=== PATIENT | male | born 1955 | race Asian ===

== ENCOUNTER → 2016-09-06 | Outpatient (CLI) | payer OTHER ==
[2014-03-08 18:44] VITALS: BP 172/102
[2016-09-06 10:43] LABS: ALBUMIN 3.6 g/dL (3.4-5.0); CALCIUM 8.8 mg/dL (8.5-10.1); CREATININE 1.3 mg/dL (0.7-1.3); GFR 56.3; PHOSPHORUS 3.7 mg/dL (2.6-4.7); POTASSIUM 3.5 mmol/L (3.5-5.1)
== END | disposition home or self-care (01) ==
LOC: LAB 09:47
PROVIDERS: ATTEND Nurse Practitioner Adult Health
DX: I10 Essential (primary) hypertension (principal); E78.5 Hyperlipidemia, unspecified
CPT/HCPCS: 36415; 80061; 80069

== ENCOUNTER 2017-03-16 08:36 | Emergency (ER) | payer OTHER ==
--- NOTE | 2017-03-16 09:17 | RAD ---
Three views FOOT LEFT 3V Clinical History: injury, pain Comparison: None. Findings: The visualized osseous structures appear normal. Impression: No acute findings.
--- NOTE | 2017-03-16 09:18 | RAD ---
Three views ANKLE LEFT 3V Clinical History: injury Comparison: None. Findings: The visualized osseous structures appear normal. Impression: No acute findings.
[2017-03-16] MEDS ORDERED: NAPR-683 PO (09:29)
[2017-03-16] MEDS ORDERED: HYDR-971 PO (09:29)
--- NOTE | 2017-03-16 09:30 | PHYS DOC ---
Past History Past Medical History: High Cholesterol, Hypertension, Other Past Surgical History: No Surgical History, Other Smoking: Non-smoker Alcohol Use: None Drug Use: None Adult General Chief Complaint Chief Complaint: ANKLE PROBLEM HPI HPI 62-year-old male patient states he twisted his left ankle last night and this morning was not able to walk and bear weight without pain. Patient complaining of pain in medial malleolus of his ankle and states his pain is 9/10 with walking but denies any pain without bearing weight. Patient denies other injuries and focal neurodeficit. Review of Systems Review of Systems Constitutional: Denies fever or chills [] Eyes: Denies change in visual acuity, redness, or eye pain [] HENT: Denies nasal congestion or sore throat [] Respiratory: Denies cough or shortness of breath [] Cardiovascular: No additional information not addressed in HPI [] GI: Denies abdominal pain, nausea, vomiting, bloody stools or diarrhea [] : Denies dysuria or hematuria [] Musculoskeletal: Denies back pain , reports joint pain [] Integument: Denies rash or skin lesions [] Neurologic: Denies headache, focal weakness or sensory changes [] Endocrine: Denies polyuria or polydipsia [] All other systems were reviewed and found to be within normal limits, except as documented in this note. Allergies Allergies Allergies Coded Allergies Type Severity Reaction Last Updated Verified No Known Drug Allergies 03/08/14 No Physical Exam Physical Exam Constitutional: Well developed, well nourished, mild distress, non-toxic appearance. [] HENT: Normocephalic, atraumatic, bilateral external ears normal, oropharynx moist, no oral exudates, nose normal. [] Eyes: PERRLA, EOMI, conjunctiva normal, no discharge. [] Neck: Normal range of motion, no tenderness, supple, no stridor. [] Cardiovascular:Heart rate regular rhythm, no murmur [] Lungs & Thorax: Bilateral breath sounds clear to auscultation [] Skin: Warm, dry, no erythema, no rash. [] Back: No tenderness, no CVA tenderness. [] Extremities: Left ankle with tenderness and mild edema in medial malleolus without neurovascular deficit Neurologic: Alert and oriented X 3, normal motor function, normal sensory function, no focal deficits noted. [] Psychologic: Affect normal, judgement normal, mood normal. [] Current Patient Data Vital Signs Vital Signs Date Time Temp Pulse Resp B/P (MAP) Pulse Ox O2 Delivery O2 Flow Rate FiO2 03/16/17 08:36 98.0 104 18 97 Room Air EKG EKG [] Radiology/Procedures Radiology/Procedures [] Course & Med Decision Making Course & Med Decision Making Pertinent Imaging studies reviewed. (See chart for details) Evaluation of patient in ER showed 62-year-old female patient with injury to left ankle without fracture. Plan to apply Aircast and provided crutches and discharge patient home with prescription of ibuprofen and hydrocodone. [] Dragon Disclaimer Dragon Disclaimer This electronic medical record was generated, in whole or in part, using a voice recognition dictation system. Departure Departure: Impression: Primary Impression: Left ankle sprain Disposition: HOME, SELF-CARE (At 0927) Condition: STABLE Referrals: FATOU COTTON MD (PCP) Patient Instructions: Ankle Sprain Additional Instructions: Apply ice on her ankle, elevate your left leg, use crutches as needed Follow-up with your primary care physician in 3-5 days Scripts Naproxen (NAPROSYN) 500 Mg Tablet 1 TAB PO BID, #20 TAB Prov: ALFONSO BRAGG MD 03/16/17 Hydrocodone Bit/Acetaminophen (NORCO 5-325 TABLET) 1 Each Tablet 1-2 TAB PO Q4-6HRS, #12 TAB Prov: ALFONSO BRAGG MD 03/16/17 ALFONSO BRAGG MD Mar 16, 2017 09:30
[2017-03-16 09:51] VITALS: BP 134/78
== END 2017-03-16 09:51 | disposition home or self-care (01) ==
LOC: ER 08:36
DX: S93.402A Sprain of unspecified ligament of left ankle, initial encounter (principal); E78.00 Pure hypercholesterolemia, unspecified; I10 Essential (primary) hypertension; X50.1XXA Overexertion from prolonged static or awkward postures, initial encounter; Y93.89 Activity, other specified; Y99.8 Other external cause status; Y92.89 Other specified places as the place of occurrence of the external cause
CPT/HCPCS: 29515; 73610; 73630; 99284-25

== ENCOUNTER → 2017-07-29 | Outpatient (CLI) | payer OTHER ==
[~2017-07-29] MED LIST: HYDR-971 PO; NAPR-683 PO
[2017-07-29 08:46] LABS: BASO % 1 % (0-3); EOS # 0.4 x10^3/uL (0.0-0.7); EOS % 5 % (0-3); HEMATOCRIT 39.9 % (39.0-53.0); HEMOGLOBIN 13.4 g/dL (13.0-17.5); LYMPH # 2.2 x10^3/uL (1.0-4.8); LYMPH % 30 % (24-48); MEAN CORPUSCULAR HEMOGLOBIN 29 pg (25-35); MEAN CORPUSCULAR HGB CONC 34 g/dL (31-37); MEAN CORPUSCULAR VOLUME 87 fL (79-100); MONO # 0.6 x10^3/uL (0.0-1.1); MONO % 9 % (0-9); NEUT # 4.2 x10^3uL (1.8-7.7); NEUT % 56 % (31-73); PLATELET COUNT 298 x10^3/uL (140-400); RED BLOOD COUNT 4.61 x10^6/uL (4.30-5.70); RED CELL DISTRIBUTION WIDTH 13.9 % (11.5-14.5); WHITE BLOOD COUNT 7.5 x10^3/uL (4.0-11.0)
[2017-07-29 09:09] LABS: ALBUMIN 3.7 g/dL (3.4-5.0); ALBUMIN/GLOBULIN RATIO 0.9 (1.0-1.7); BACTERIA,URINE 0 /HPF (0-FEW); BILIRUBIN,URINE NEG (NEG); CALCIUM 9.2 mg/dL (8.5-10.1); CLARITY,URINE CLEAR; COLOR,URINE YELLOW; CREATININE 1.4 mg/dL (0.7-1.3); GFR 51.5; GLUCOSE,URINE NEG (NEG); NITRITE,URINE NEG (NEG); POTASSIUM 3.6 mmol/L (3.5-5.1); RBC,URINE OCC /HPF (0-2); SQUAMOUS EPITHELIAL CELL,UR OCC /LPF; TOTAL BILIRUBIN 1.1 mg/dL (0.2-1.0); TOTAL PROTEIN 7.9 g/dL (6.4-8.2); URIC ACID 9.6 mg/dL (3.5-7.2); UROBILINOGEN,URINE 0.2 mg/dL (0.2 mg/dL); WBC,URINE 0 /HPF (0-4)
--- NOTE | 2017-07-29 12:15 | RAD ---
Right foot, 3 views, 07/29/2017: HISTORY: Foot pain, gout No fracture or dislocation is identified. There is only minimal narrowing of scattered interphalangeal joints and the first MTP joint. No bony erosions are seen. There is mild subcutaneous edema. No unusual soft tissue radiopacities are evident. IMPRESSION: No acute bony abnormality is detected. Electronically signed by: Terry Gifford MD (07/29/2017 12:11 PM) [facility]
[2017-07-29 14:31] LABS: THYROID STIM HORMONE (TSH) 2.279 uIU/mL (0.358-3.740)
[2017-08-01 11:10] LABS: FREE PSA/PSA RATIO 8.3 % (.); PSA FREE 0.05 ng/mL; PSA TOTAL 0.6 ng/mL (0.0-4.0)
== END | disposition home or self-care (01) ==
LOC: RAD 07:04
PROVIDERS: ATTEND Nurse Practitioner Adult Health
DX: Z00.01 Encounter for general adult medical examination with abnormal findings (principal); N40.0 Benign prostatic hyperplasia without lower urinary tract symptoms; E72.4 Disorders of ornithine metabolism; M79.671 Pain in right foot; R22.41 Localized swelling, mass and lump, right lower limb
CPT/HCPCS: 36415; 73630; 80053; 80061; 81001; 83880; 84153; 84154; 84443; 84550; 85025

== ENCOUNTER 2017-08-31 16:04 | Emergency (ER) | payer OTHER ==
[~2017-08-31] VITALS: Ht 170.2 cm; Wt 78.0 kg
[2017-08-31 16:17] VITALS: BP 141/80
--- NOTE | 2017-08-31 16:21 | PHYS DOC ---
Past History Past Medical History: High Cholesterol, Hypertension, Other Past Surgical History: No Surgical History, Other Smoking: Non-smoker Alcohol Use: None Drug Use: None Adult General Chief Complaint Chief Complaint: ANKLE PROBLEM HPI HPI Patient is a 62-year-old male who presents to the emergency department for evaluation. He states that 2 days ago he fell down several stairs in his home, and injured his left ankle and right hand. He has pain at the base of the second metacarpal on his right hand, and also pain at the medial malleolus of his left ankle. He is able to ambulate. The pain does radiate up his left lower leg, but he does not have any tenderness to that area. He denies any numbness weakness, or any other injuries. Denies any headache, neck pain or injury, back pain, chest, or any other extremity injury. Palpation of the affected areas worsen since symptoms. There are no alleviating factors to his symptoms. Review of Systems Review of Systems Constitutional: Denies fever or chills [] Eyes: Denies change in visual acuity, redness, or eye pain [] Respiratory: Denies cough or shortness of breath [] Cardiovascular: Denies chest pain [] GI: Denies abdominal pain, nausea, vomiting, bloody stools or diarrhea [] : Denies dysuria or hematuria [] Musculoskeletal: Denies neck, back pain or joint pain, except as noted in history of present illness [] Neurologic: Denies headache, focal weakness or sensory changes [] Allergies Allergies Allergies Coded Allergies Type Severity Reaction Last Updated Verified No Known Drug Allergies 03/08/14 No Physical Exam Physical Exam PHYSICAL EXAM: CONSTITUTIONAL: Well developed, well nourished HEAD: normocephalic, atraumatic EENT: PERRL, EOMI. Conjunctivae normal color, sclerae non-icteric; moist mucous membranes. NECK: Supple, non-tender; no meningismus.There is full, painless range of motion of the cervical spine, without any focal bony midline tenderness to palpation. LUNGS: Lungs CTA, breathing even and unlabored. Normal air movement. HEART: Regular rate and rhythm, no murmur CHEST: No deformity; non-tender ABDOMEN: The abdomen is soft, and non-tender, no masses or bruits. EXTREM: Normal ROM; no deformity, no calf tenderness. Normal pulses palpable in all extremities. There is no pedal edema. There is mild tenderness to palpation in the left ankle, medial malleolus without significant soft tissue swelling. There is no ligamentous laxity. Dorsalis pedis pulses are strong bilaterally. There is mild tenderness to palpation at the base of the second metacarpal bone on the right hand, without any soft tissue swelling. There is no deformity. Distal PMS are intact. The remainder of the extremities are atraumatic. SKIN: No rash; no diaphoresis NEURO: Alert; normal speech and cognition; CN's grossly intact; strength grossly intact without focal deficit. BACK: No CVA TTP. EKG EKG [] Radiology/Procedures Radiology/Procedures [PROCEDURE: ANKLE LEFT 3V Right hand and left ankle radiograph 08/31/2017 INDICATION: Fall today with right hand pain and left ankle pain. COMPARISON: March 16, 2017 left ankle TECHNIQUE: 3 views the right hand and 3 views the left ankle are provided. FINDINGS: Right hand: There is no acute fracture or dislocation. Bone mineralization is within normal limits. Mild interphalangeal joint space narrowing. Regional soft tissues are within normal limits. There is no soft tissue gas or osseous erosion. Left ankle: There is no acute fracture or dislocation. Tibial plafond and talar dome are intact. Ankle mortise is congruent. No significant soft tissue swelling. There may be an anterior tibiotalar joint effusion. IMPRESSION: No acute fracture or dislocation involving the right hand and left ankle. There may be a small anterior tibiotalar joint effusion.] Course & Med Decision Making Course & Med Decision Making Pertinent Labs and Imaging studies reviewed. (See chart for details) [] Dragon Disclaimer Dragon Disclaimer This electronic medical record was generated, in whole or in part, using a voice recognition dictation system. Departure Departure: Impression: Primary Impression: Ankle sprain Additional Impressions: Hand contusion Fall Disposition: 01 HOME, SELF-CARE Condition: STABLE Referrals: FATOU COTTON MD (PCP) Patient Instructions: Ankle Sprain, Hand Contusion Additional Instructions: Follow-up with an orthopedic surgeon or returned item clerk is recommended if you continue to have pain. Scripts Acetaminophen With Codeine (TYLENOL WITH CODEINE #3 TABLET) 1 Each Tablet 1 TAB PO Q4-6HRS PRN for PAIN, #15 TAB Prov: ERICKSON CARRENO MD 08/31/17 Problem Qualifiers ERICKSON CARRENO MD Aug 31, 2017 16:21
--- NOTE | 2017-08-31 16:35 | RAD ---
Right hand and left ankle radiograph 08/31/2017 INDICATION: Fall today with right hand pain and left ankle pain. COMPARISON: March 16, 2017 left ankle TECHNIQUE: 3 views the right hand and 3 views the left ankle are provided. FINDINGS: Right hand: There is no acute fracture or dislocation. Bone mineralization is within normal limits. Mild interphalangeal joint space narrowing. Regional soft tissues are within normal limits. There is no soft tissue gas or osseous erosion. Left ankle: There is no acute fracture or dislocation. Tibial plafond and talar dome are intact. Ankle mortise is congruent. No significant soft tissue swelling. There may be an anterior tibiotalar joint effusion. IMPRESSION: No acute fracture or dislocation involving the right hand and left ankle. There may be a small anterior tibiotalar joint effusion. Electronically signed by: Deedee Maxwell MD (08/31/2017 4:31 PM) [id number]
[2017-08-31] MEDS ORDERED: ACET-704 PO (16:45)
[2017-08-31] MEDS ORDERED: ACETAMINOPHEN 500 MG TABLET PO ONE (16:45)
== END 2017-08-31 16:55 | disposition home or self-care (01) ==
LOC: ER 16:04
DX: S93.402A Sprain of unspecified ligament of left ankle, initial encounter (principal); S60.221A Contusion of right hand, initial encounter; E78.00 Pure hypercholesterolemia, unspecified; I10 Essential (primary) hypertension; W10.8XXA Fall (on) (from) other stairs and steps, initial encounter; Y93.89 Activity, other specified; Y99.8 Other external cause status; Y92.098 Other place in other non-institutional residence as the place of occurrence of the external cause
CPT/HCPCS: 73130; 73610; 99284

== ENCOUNTER → 2017-09-12 | Outpatient (CLI) | payer OTHER ==
[2017-08-31 16:17] VITALS: BP 141/80
[~2017-09-12] MED LIST changes: +ACET-704 PO
== END | disposition home or self-care (01) ==
LOC: LAB 07:46
PROVIDERS: ATTEND Radiology Radiation Oncology
DX: C61 Malignant neoplasm of prostate (principal)
CPT/HCPCS: G0103

== ENCOUNTER → 2017-10-25 | Outpatient (CLI) | payer OTHER ==
[2017-10-25 16:29] LABS: BASO % 1 % (0-3); EOS # 0.1 x10^3/uL (0.0-0.7); EOS % 2 % (0-3); HEMATOCRIT 42.2 % (39.0-53.0); HEMOGLOBIN 14.2 g/dL (13.0-17.5); LYMPH % 27 % (24-48); MEAN CORPUSCULAR HEMOGLOBIN 29 pg (25-35); MEAN CORPUSCULAR HGB CONC 34 g/dL (31-37); MEAN CORPUSCULAR VOLUME 86 fL (79-100); MONO # 0.8 x10^3/uL (0.0-1.1); MONO % 11 % (0-9); NEUT # 4.7 x10^3uL (1.8-7.7); NEUT % 61 % (31-73); PLATELET COUNT 305 x10^3/uL (140-400); RED BLOOD COUNT 4.91 x10^6/uL (4.30-5.70); RED CELL DISTRIBUTION WIDTH 14.9 % (11.5-14.5); WHITE BLOOD COUNT 7.7 x10^3/uL (4.0-11.0)
[2017-10-25 16:43] LABS: ALBUMIN 4.2 g/dL (3.4-5.0); CALCIUM 9.5 mg/dL (8.5-10.1); CREATININE 1.2 mg/dL (0.7-1.3); GFR 61.6; POTASSIUM 3.8 mmol/L (3.5-5.1); TOTAL BILIRUBIN 1.5 mg/dL (0.2-1.0); TOTAL PROTEIN 8.5 g/dL (6.4-8.2); URIC ACID 7.2 mg/dL (3.5-7.2)
== END | disposition home or self-care (01) ==
LOC: PMG 15:54
PROVIDERS: ATTEND Physician Assistant Medical
DX: E78.5 Hyperlipidemia, unspecified (principal); M10.00 Idiopathic gout, unspecified site; I10 Essential (primary) hypertension; E78.00 Pure hypercholesterolemia, unspecified; Z85.46 Personal history of malignant neoplasm of prostate
CPT/HCPCS: 36415; 80053; 80061; 84550; 85025

== ENCOUNTER 2018-01-14 07:28 | Emergency (ER) | payer OTHER ==
[~2018-01-14] VITALS: Ht 165.1 cm; Wt 81.8 kg
[2018-01-14] MEDS ORDERED: PHENAZOPYRIDINE 200 MG TABLET. ONE (08:05)
[2018-01-14] MEDS ORDERED: PHEN-318 PO (08:05)
[2018-01-14] MEDS ORDERED: CIPR250T30 PO (08:05)
[2018-01-14] MEDS ORDERED: cefTRIAXone IV Push 1 GM VIAL. IVP ONE (08:05)
--- NOTE | 2018-01-14 08:10 | PHYS DOC ---
Past History Past Medical History: Cancer, Hypertension, Other Past Surgical History: No Surgical History Smoking: Non-smoker Alcohol Use: None Drug Use: None Adult General Chief Complaint Chief Complaint: URINARY FREQUENCY HPI HPI Patient is a 62 year old male who presents with complaining of urinary frequency and dysuria since last night. Patient states he had urinary frequency and dysuria started 3 weeks ago and took left over antibiotic like his with improvement of his condition but since last night and started to have the same problem with hematuria. Patient denies nausea and vomiting, fever and chills, abdominal and back pain. Review of Systems Review of Systems Constitutional: Denies fever or chills [] Eyes: Denies change in visual acuity, redness, or eye pain [] HENT: Denies nasal congestion or sore throat [] Respiratory: Denies cough or shortness of breath [] Cardiovascular: No additional information not addressed in HPI [] GI: Denies abdominal pain, nausea, vomiting, bloody stools or diarrhea [] : Reports dysuria and hematuria Musculoskeletal: Denies back pain or joint pain [] Integument: Denies rash or skin lesions [] Neurologic: Denies headache, focal weakness or sensory changes [] Endocrine: Denies polyuria or polydipsia [] All other systems were reviewed and found to be within normal limits, except as documented in this note. Allergies Allergies Allergies Coded Allergies Type Severity Reaction Last Updated Verified No Known Drug Allergies 03/08/14 No Physical Exam Physical Exam Constitutional: Well developed, well nourished, mild distress, non-toxic appearance. [] HENT: Normocephalic, atraumatic, oropharynx moist, no oral exudates, nose normal. [] Eyes: PERRLA, EOMI, conjunctiva normal, no discharge. [] Neck: Normal range of motion, no tenderness, supple, no stridor. [] Cardiovascular:Heart rate regular rhythm, no murmur [] Lungs & Thorax: Bilateral breath sounds clear to auscultation [] Abdomen: Bowel sounds normal, soft, no tenderness, no masses, no pulsatile masses. [] Skin: Warm, dry, no erythema, no rash. [] Back: No tenderness, no CVA tenderness. [] Extremities: No tenderness, no cyanosis, no clubbing, ROM intact, no edema. [] Neurologic: Alert and oriented X 3, normal motor function, normal sensory function, no focal deficits noted. [] Psychologic: Affect normal, judgement normal, mood normal. [] Current Patient Data Vital Signs Vital Signs Date Time Temp Pulse Resp B/P (MAP) Pulse Ox O2 Delivery O2 Flow Rate FiO2 01/14/18 07:37 98.0 71 20 99 Room Air EKG EKG [] Radiology/Procedures Radiology/Procedures [] Course & Med Decision Making Course & Med Decision Making Pertinent Labs reviewed. (See chart for details) discharge: I've spoken with the patient and/or caregivers. I've explained the patient's condition, diagnosis and treatment plan based on information available to me at this time. I've answered the patient's and/or caregivers questions and addressed any concerns. The patient and/or caregivers have a good understanding the patient's diagnosis, condition and treatment plan as can be expected at this point. Vital signs have been stabilized. The patient's condition is stable for discharge from the emergency department. The patient will pursue further outpatient evaluation with her primary care provider or other designated consulting physician as outlined in the discharge instructions. Patient and/or caregivers are agreeable to this plan of care and follow-up instructions have been explained in detail. The patient and/or caregivers have received these instructions in written format and expressed understanding of these discharge instructions. The patient and her caregivers are aware that if any significant change in condition or worsening of symptoms should prompt him to immediately return to this of the closest emergency department. If an emergent department is not readily available I would encourage him to call 911. Dragon Disclaimer Dragon Disclaimer This electronic medical record was generated, in whole or in part, using a voice recognition dictation system. Departure Departure: Impression: Primary Impression: Acute urinary tract infection Additional Impression: Hematuria Disposition: HOME, SELF-CARE (at 0815) Condition: IMPROVED Referrals: DREW CALDWELL (PCP) Patient Instructions: Urinary Tract Infection Additional Instructions: Drink plenty of liquids Follow-up with your primary care physician in 3-5 days Return to ER if not getting better Scripts Ciprofloxacin Hcl (CIPRO) 250 Mg Tablet 1 TAB PO BID, #14 TAB Prov: ALFONSO BRAGG MD 01/14/18 Phenazopyridine Hcl (PYRIDIUM) 200 Mg Tablet 200 MG PO BID, #10 TAB Prov: ALFONSO BRAGG MD 01/14/18 Problem Qualifiers ALFONSO BRAGG MD Jan 14, 2018 08:09
[2018-01-14 08:19] LABS: BILIRUBIN,URINE NEG (NEG); CLARITY,URINE CLOUDY; COLOR,URINE YELLOW; GLUCOSE,URINE NEG (NEG); NITRITE,URINE NEG (NEG); UROBILINOGEN,URINE 0.2 mg/dL (0.2 mg/dL)
[2018-01-14 08:20] VITALS: BP 152/87
[2018-01-14] MEDS ORDERED: cefTRIAXone IM 1 GM VIAL IM ONE (08:30)
[2018-01-14] MEDS ORDERED: PHENAZOPYRIDINE 200 MG TABLET. PO ONE (08:30)
== END 2018-01-14 08:31 | disposition home or self-care (01) ==
LOC: ER 07:28
DX: N39.0 Urinary tract infection, site not specified (principal); R31.9 Hematuria, unspecified; I10 Essential (primary) hypertension
CPT/HCPCS: 81003; 87086; 96372; 99283; J0696

== ENCOUNTER 2018-01-21 10:15 | Emergency (ER) | payer OTHER ==
[~2018-01-21] VITALS: Ht 165.1 cm; Wt 78.0 kg
[~2018-01-21 10:15] MED LIST changes: +CIPR250T30 PO; +PHEN-318 PO
[2018-01-21 11:02] LABS: BILIRUBIN,URINE NEG (NEG); CLARITY,URINE CLOUDY; COLOR,URINE YELLOW; GLUCOSE,URINE NEG (NEG); NITRITE,URINE NEG (NEG); UROBILINOGEN,URINE 0.2 mg/dL (0.2 mg/dL)
[2018-01-21 11:03] LABS: BACTERIA,URINE FEW /HPF (0-FEW); RBC,URINE >40 /HPF (0-2); WBC,URINE >40 /HPF (0-4)
[2018-01-21] MEDS ORDERED: CEPH500C PO (11:07)
[2018-01-21 11:30] VITALS: BP 166/102
--- NOTE | 2018-01-21 15:18 | PHYS DOC ---
Past History Past Medical History: Cancer, Hypertension, UTI Past Surgical History: No Surgical History Smoking: Non-smoker Alcohol Use: None Drug Use: None Adult General Chief Complaint Chief Complaint: URINARY RETENTION HPI HPI Patient is a 62-year-old male presenting with dysuria occasional blood in the urine for the last 1 day. Frequency noted he was recently treated for a UTI but his symptoms came back yesterday. His symptoms didn't get much better but then they did come back. No fever no back pain no vomiting no abdominal pain Review of Systems Review of Systems Constitutional: Denies fever or chills [] GI: Denies abdominal pain, nausea, vomiting, bloody stools or diarrhea [] : Musculoskeletal: Denies back pain or joint pain [] Integument: Denies rash or skin lesions [] Neurologic: Denies headache, focal weakness or sensory changes [] Endocrine: Denies polyuria or polydipsia [] All other systems were reviewed and found to be within normal limits, except as documented in this note. Allergies Allergies Allergies Coded Allergies Type Severity Reaction Last Updated Verified No Known Drug Allergies 03/08/14 No Physical Exam Physical Exam Constitutional: Well developed, well nourished, no acute distress, non-toxic appearance. [] HENT: Normocephalic, atraumatic, bilateral external ears normal, oropharynx moist, no oral exudates, nose normal. [] Eyes: PERRLA, EOMI, conjunctiva normal, no discharge. [] Pulmonary: Normal respiratory effort no increased work of breathing no obvious chest wall trauma Abdomen: Bowel sounds normal, soft, no tenderness, no masses, no pulsatile masses. [] Skin: Warm, dry, no erythema, no rash. [] Back: No tenderness, no CVA tenderness. [] Extremities: No tenderness, no cyanosis, no clubbing, ROM intact, no edema. [] Neurologic: Alert and oriented X 3, normal motor function, normal sensory function, no focal deficits noted. [] Psychologic: Affect normal, judgement normal, mood normal. [] Current Patient Data Vital Signs Vital Signs Date Time Temp Pulse Resp B/P (MAP) Pulse Ox O2 Delivery O2 Flow Rate FiO2 01/21/18 11:30 72 16 166/102 (123) 97 Room Air 01/21/18 10:20 98.0 Lab Results Laboratory Tests Test 01/21/18 10:30 Urine Collection Type Unknown Urine Color Yellow Urine Clarity Cloudy Urine pH 6.0 Urine Specific [place] >=1.030 Urine Protein 100 mg/dl (NEG-TRACE) Urine Glucose (UA) Neg mg/dL (NEG) Urine Ketones (Stick) Neg mg/dL (NEG) Urine Blood Large (NEG) Urine Nitrite Neg (NEG) Urine Bilirubin Neg (NEG) Urine Urobilinogen Dipstick 0.2 mg/dL (0.2 mg/dL) Urine Leukocyte Esterase Large (NEG) Urine RBC >40 /HPF (0-2) Urine WBC >40 /HPF (0-4) Urine Squamous Epithelial Cells None /LPF Urine Bacteria Few /HPF (0-FEW) EKG EKG [] Radiology/Procedures Radiology/Procedures [] Course & Med Decision Making Course & Med Decision Making Pertinent Labs and Imaging studies reviewed. (See chart for details) []Urinary tract infection noted on urinalysis. Blood pressure did come down and advised him to get follow-up within 1 month for that. Perception for Keflex was given he did recently discontinue ciprofloxacin. Unclear etiology of recurrent UTI however the bladder screen showed only 60 ML postvoid residual in the emergency room. Precautions were discussed and he voiced understanding of instructions Dragon Disclaimer Dragon Disclaimer This electronic medical record was generated, in whole or in part, using a voice recognition dictation system. Departure Departure: Impression: Primary Impression: Elevated blood pressure reading Additional Impression: Urinary tract infection Disposition: HOME, SELF-CARE Condition: STABLE Patient Instructions: Urinary Tract Infection, Hypertension Scripts Cephalexin (CEPHALEXIN) 500 Mg Capsule 1 CAP PO QID, #40 CAP Prov: PADMINI SABILLON MD 01/21/18 Problem Qualifiers PADMINI SABILLON MD Jan 21, 2018 15:18
== END 2018-01-21 11:30 | disposition home or self-care (01) ==
LOC: ER 10:15
DX: N39.0 Urinary tract infection, site not specified (principal); I10 Essential (primary) hypertension; Z87.440 Personal history of urinary (tract) infections
CPT/HCPCS: 81001; 87086; 99285

== ENCOUNTER → 2018-01-31 | Outpatient (CLI) | payer OTHER ==
[2018-01-21 11:30] VITALS: BP 166/102
[~2018-01-31] MED LIST changes: +CEPH500C PO
[2018-01-31 10:29] LABS: BASO % 1 % (0-3); EOS # 0.2 x10^3/uL (0.0-0.7); EOS % 2 % (0-3); HEMATOCRIT 43.3 % (39.0-53.0); HEMOGLOBIN 14.4 g/dL (13.0-17.5); LYMPH # 2.2 x10^3/uL (1.0-4.8); LYMPH % 31 % (24-48); MEAN CORPUSCULAR HEMOGLOBIN 29 pg (25-35); MEAN CORPUSCULAR HGB CONC 33 g/dL (31-37); MEAN CORPUSCULAR VOLUME 87 fL (79-100); MONO # 0.6 x10^3/uL (0.0-1.1); MONO % 9 % (0-9); NEUT % 57 % (31-73); PLATELET COUNT 324 x10^3/uL (140-400); RED BLOOD COUNT 4.99 x10^6/uL (4.30-5.70); RED CELL DISTRIBUTION WIDTH 13.8 % (11.5-14.5)
[2018-01-31 10:51] LABS: ALBUMIN 3.7 g/dL (3.4-5.0); ALBUMIN/GLOBULIN RATIO 0.8 (1.0-1.7); CALCIUM 8.6 mg/dL (8.5-10.1); CREATININE 1.3 mg/dL (0.7-1.3); GFR 55.9; POTASSIUM 4.1 mmol/L (3.5-5.1); TOTAL BILIRUBIN 1.3 mg/dL (0.2-1.0); TOTAL PROTEIN 8.1 g/dL (6.4-8.2); URIC ACID 7.2 mg/dL (3.5-7.2)
[2018-01-31 11:12] LABS: BILIRUBIN,URINE NEG (NEG); CLARITY,URINE CLEAR; COLOR,URINE YELLOW; GLUCOSE,URINE NEG (NEG); NITRITE,URINE NEG (NEG); UROBILINOGEN,URINE 0.2 mg/dL (0.2 mg/dL)
[2018-01-31 11:13] LABS: BACTERIA,URINE 0 /HPF (0-FEW)
== END | disposition home or self-care (01) ==
LOC: LAB 09:28
PROVIDERS: ATTEND Physician Assistant Medical
DX: Z12.5 Encounter for screening for malignant neoplasm of prostate (principal); I10 Essential (primary) hypertension; M10.00 Idiopathic gout, unspecified site; R82.90 Unspecified abnormal findings in urine
CPT/HCPCS: 36415; 80053; 80061; 81001; 84550; 85025; 87086; G0103

== ENCOUNTER 2018-03-21 23:27 | Emergency (ER) | payer OTHER ==
[~2018-03-21] VITALS: Ht 165.1 cm; Wt 81.8 kg
[~2018-03-21 23:27] MED LIST changes: +HYDR-3165 PO; -HYDR-971 PO
--- NOTE | 2018-03-21 23:53 | PHYS DOC ---
Past History Past Medical History: Cancer, Hypertension, UTI Past Surgical History: No Surgical History Smoking: Non-smoker Alcohol Use: None Drug Use: None Adult General Chief Complaint Chief Complaint: URINARY FREQUENCY HPI HPI 63-year-old male presents with dysuria. He started to have pain with urination this evening around 10 PM. Last time he urinated he noticed a little bit of blood in it and he was concerned UTI. This would be his second UTI in the last couple months. He denies any history of UTIs prior to this time. Patient denies fever or chills at home. His blood pressure is elevated today despite taking his blood pressure medicine. He recently had an appointment with his primary care physician and his blood pressure was controlled. Review of Systems Review of Systems Constitutional: Denies fever or chills [] Eyes: Denies change in visual acuity, redness, or eye pain [] HENT: Denies nasal congestion or sore throat [] Respiratory: Denies cough or shortness of breath [] Cardiovascular: No additional information not addressed in HPI [] GI: Denies abdominal pain, nausea, vomiting, bloody stools or diarrhea [] : Dysuria with hematuria[] Musculoskeletal: Denies back pain or joint pain [] Integument: Denies rash or skin lesions [] Neurologic: Denies headache, focal weakness or sensory changes [] Endocrine: Denies polyuria or polydipsia [] All other systems were reviewed and found to be within normal limits, except as documented in this note. Allergies Allergies Allergies Coded Allergies Type Severity Reaction Last Updated Verified No Known Drug Allergies 03/08/14 No Physical Exam Physical Exam Constitutional: Well developed, well nourished, no acute distress, non-toxic appearance. [] HENT: Normocephalic, atraumatic, bilateral external ears normal, oropharynx moist, no oral exudates, nose normal. [] Eyes: PERRLA, EOMI, conjunctiva normal, no discharge. [] Neck: Normal range of motion, no tenderness, supple, no stridor. [] Cardiovascular:Heart rate regular rhythm, no murmur [] Lungs & Thorax: Bilateral breath sounds clear to auscultation [] Abdomen: Bowel sounds normal, soft, no tenderness, no masses, no pulsatile masses. [] Skin: Warm, dry, no erythema, no rash. [] Back: No tenderness, no CVA tenderness. [] Extremities: No tenderness, no cyanosis, no clubbing, ROM intact, no edema. [] Neurologic: Alert and oriented X 3, normal motor function, normal sensory function, no focal deficits noted. [] Psychologic: Affect normal, judgement normal, mood normal. [] Current Patient Data Vital Signs Vital Signs Date Time Temp Pulse Resp B/P (MAP) Pulse Ox O2 Delivery O2 Flow Rate FiO2 03/21/18 23:30 98.2 73 20 98 Room Air EKG EKG [] Radiology/Procedures Radiology/Procedures [] Course & Med Decision Making Course & Med Decision Making Pertinent Labs and Imaging studies reviewed. (See chart for details) The patient's urinalysis is consistent with UTI. I will treat him with Macrobid for 7 days. We'll give first dose in the ED. [] Dragon Disclaimer Dragon Disclaimer This electronic medical record was generated, in whole or in part, using a voice recognition dictation system. Departure Departure: Referrals: DREW CALDWELL (PCP) Scripts Nitrofurantoin Monohyd/M-Cryst (MACROBID 100 MG CAPSULE) 100 Mg Capsule 1 CAP PO BID for uti, #14 CAP Prov: LAVELL SANTILLAN DO 03/22/18 LAVELL SANTILLAN DO Mar 21, 2018 23:53
[2018-03-22 00:15] VITALS: BP 150/94
[2018-03-22 00:17] LABS: BILIRUBIN,URINE NEG (NEG); CLARITY,URINE CLOUDY; COLOR,URINE YELLOW; GLUCOSE,URINE NEG (NEG); NITRITE,URINE NEG (NEG); UROBILINOGEN,URINE 0.2 mg/dL (0.2 mg/dL)
[2018-03-22 00:18] LABS: BACTERIA,URINE FEW /HPF (0-FEW); RBC,URINE >40 /HPF (0-2); SQUAMOUS EPITHELIAL CELL,UR OCC /LPF; WBC,URINE >40 /HPF (0-4)
[2018-03-22] MEDS ORDERED: NITR100C62 PO (00:23)
[2018-03-22] MEDS: NITROFURANTOIN MONOHYD/M-CRYST 100 MG CAPSULE. PO ONE (00:40)
== END 2018-03-22 00:41 | disposition home or self-care (01) ==
LOC: ER 23:27
DX: N39.0 Urinary tract infection, site not specified (principal); I10 Essential (primary) hypertension; Z87.440 Personal history of urinary (tract) infections
CPT/HCPCS: 81001; 87086; 99283

== ENCOUNTER 2018-04-01 06:54 | Emergency (ER) | payer OTHER ==
[~2018-04-01] VITALS: Ht 165.1 cm; Wt 78.0 kg
[~2018-04-01 06:54] MED LIST changes: +NITR100C62 PO
[2018-04-01] MEDS ORDERED: CEPHALEXIN 250 MG CAPSULE PO ONE (07:15)
[2018-04-01] MEDS ORDERED: TAMSULOSIN 0.4 MG CAP.ER.24H. PO ONE (07:15)
[2018-04-01] MEDS ORDERED: TAMS0.4C97 PO (07:19)
[2018-04-01] MEDS ORDERED: CEPH-264 PO (07:19)
--- NOTE | 2018-04-01 07:20 | PHYS DOC ---
Past History Past Medical History: Cancer, Hypertension, UTI Past Surgical History: No Surgical History Smoking: Non-smoker Alcohol Use: None Drug Use: None Adult General Chief Complaint Chief Complaint: PAIN ON URINATION HPI HPI Patient is a 63 year old male with history of prostate cancer status post radiation therapy and frequent UTI who presents with complaining of urinary frequency and dysuria since this morning like his previous episodes of UTI. Patient denies fever and chills, nausea and vomiting, abdominal pain. Review of Systems Review of Systems Constitutional: Denies fever or chills [] Eyes: Denies change in visual acuity, redness, or eye pain [] HENT: Denies nasal congestion or sore throat [] Respiratory: Denies cough or shortness of breath [] Cardiovascular: No additional information not addressed in HPI [] GI: Denies abdominal pain, nausea, vomiting, bloody stools or diarrhea [] : Reports dysuria and urinary frequency Musculoskeletal: Denies back pain or joint pain [] Integument: Denies rash or skin lesions [] Neurologic: Denies headache, focal weakness or sensory changes [] Endocrine: Denies polyuria or polydipsia [] All other systems were reviewed and found to be within normal limits, except as documented in this note. Allergies Allergies Allergies Coded Allergies Type Severity Reaction Last Updated Verified No Known Drug Allergies 03/08/14 No Physical Exam Physical Exam Constitutional: Well developed, well nourished, mild distress, non-toxic appearance. [] HENT: Normocephalic, atraumatic Eyes: PERRLA, EOMI, conjunctiva normal, no discharge. [] Neck: Normal range of motion, no tenderness, supple, no stridor. [] Cardiovascular:Heart rate regular rhythm, no murmur [] Lungs & Thorax: Bilateral breath sounds clear to auscultation [] Abdomen: Bowel sounds normal, soft, no tenderness, no masses, no pulsatile masses. [] Skin: Warm, dry, no erythema, no rash. [] Back: No tenderness, no CVA tenderness. [] Extremities: No tenderness, no cyanosis, no clubbing, ROM intact, no edema. [] Neurologic: Alert and oriented X 3, normal motor function, normal sensory function, no focal deficits noted. [] Psychologic: Affect anxious, judgement normal, mood normal. [] EKG EKG [] Radiology/Procedures Radiology/Procedures [] Course & Med Decision Making Course & Med Decision Making Pertinent Labs reviewed. (See chart for details) Evaluation of patient in ER showed 64-year-old male patient with history of frequent UTI presented to ER with urinary frequency and dysuria. Patient had cloudy urine with WBC. Prescription for Keflex was given and patient instructed to follow up with his urologist regarding frequent UTI. Patient had blood pressure of 170 over 90s in ER and stated he didn't take his medication and instructed to take his blood pressure medication. Dragon Disclaimer Dragon Disclaimer This electronic medical record was generated, in whole or in part, using a voice recognition dictation system. Departure Departure: Impression: Primary Impression: Urinary tract infection Additional Impression: Uncontrolled hypertension Disposition: HOME, SELF-CARE (At 0730) Condition: STABLE Referrals: DREW CALDWELL (PCP) Patient Instructions: Urinary Tract Infection Additional Instructions: Drink plenty of liquids Follow-up with your urologist in 3-5 days Return to ER if not getting better Scripts Tamsulosin Hcl (FLOMAX) 0.4 Mg Cap.er.24h 1 CAP PO DAILY for urinary symptom, #30 CAP 0 Refills Prov: ALFONSO BRAGG MD 04/01/18 Cephalexin (KEFLEX) 500 Mg Capsule 2 CAP PO Q12HR for infection, #28 CAP Prov: ALFONSO BRAGG MD 04/01/18 Problem Qualifiers ALFONSO BRAGG MD Apr 01, 2018 07:20
[2018-04-01 07:22] VITALS: BP 172/94
[2018-04-01 07:37] LABS: BACTERIA,URINE MOD /HPF (0-FEW); BILIRUBIN,URINE NEG (NEG); CLARITY,URINE CLOUDY; COLOR,URINE YELLOW; GLUCOSE,URINE NEG (NEG); NITRITE,URINE NEG (NEG); RBC,URINE >40 /HPF (0-2); SQUAMOUS EPITHELIAL CELL,UR OCC /LPF; UROBILINOGEN,URINE 0.2 mg/dL (0.2 mg/dL); WBC,URINE >40 /HPF (0-4)
== END 2018-04-01 07:22 | disposition home or self-care (01) ==
LOC: ER 06:54
DX: N39.0 Urinary tract infection, site not specified (principal); I10 Essential (primary) hypertension; Z87.440 Personal history of urinary (tract) infections; Z92.3 Personal history of irradiation; Z85.46 Personal history of malignant neoplasm of prostate
CPT/HCPCS: 81001; 87086; 99283

== ENCOUNTER → 2018-04-10 | Outpatient (CLI) | payer OTHER ==
[2018-04-01 07:22] VITALS: BP 172/94
[~2018-04-10] MED LIST changes: +CEPH-264 PO; +TAMS0.4C97 PO
== END | disposition home or self-care (01) ==
LOC: LAB 09:06
PROVIDERS: ATTEND Radiology Radiation Oncology
DX: C61 Malignant neoplasm of prostate (principal)
CPT/HCPCS: G0103

== ENCOUNTER 2018-06-05 15:53 | Emergency (ER) | payer OTHER ==
[2018-06-05 16:43] LABS: BASO % 1 % (0-3); EOS # 0.1 x10^3/uL (0.0-0.7); EOS % 2 % (0-3); HEMATOCRIT 42.5 % (39.0-53.0); HEMOGLOBIN 13.9 g/dL (13.0-17.5); LYMPH # 1.8 x10^3/uL (1.0-4.8); LYMPH % 29 % (24-48); MEAN CORPUSCULAR HEMOGLOBIN 29 pg (25-35); MEAN CORPUSCULAR HGB CONC 33 g/dL (31-37); MEAN CORPUSCULAR VOLUME 87 fL (79-100); MONO # 0.6 x10^3/uL (0.0-1.1); MONO % 10 % (0-9); NEUT # 3.6 x10^3uL (1.8-7.7); NEUT % 58 % (31-73); PLATELET COUNT 303 x10^3/uL (140-400); RED BLOOD COUNT 4.88 x10^6/uL (4.30-5.70); RED CELL DISTRIBUTION WIDTH 13.8 % (11.5-14.5); WHITE BLOOD COUNT 6.2 x10^3/uL (4.0-11.0)
--- NOTE | 2018-06-05 16:52 | RAD ---
Two-view chest dated 06/05/2018. No comparison available. Clinical data indication: Dizziness. FINDINGS: 2 views chest show normal heart and mediastinal contours. Lungs are somewhat hyperinflated but otherwise clear. No consolidation or pleural effusion. No pneumothorax. IMPRESSION: No acute radiographic abnormality. Electronically signed by: Marvin Cochran MD (06/05/2018 4:49 PM) [id number]
--- NOTE | 2018-06-05 16:53 | EKG ---
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
--- NOTE | 2018-06-05 16:53 | RAD ---
EXAM: Head CT without contrast. HISTORY: Confusion. Left-sided weakness. TECHNIQUE: Computed tomographic images of the head were obtained without contrast.. *One or more of the following individualized dose reduction techniques were utilized for this examination: 1. Automated exposure control. 2. Adjustment of the mA and/or kV according to patient size. 3. Use of iterative reconstruction technique. COMPARISON: Brain MRI dated 10/26/2016. FINDINGS: There is fairly symmetric increased bifrontal extra-axial space due to suspected chronic subdural hematomas or hygromas. There are cortical vessels coursing through the subdural space. No acute or subacute extra-axial hemorrhage is seen. There is a cavum septum pellucidum. There is a chronic lacunar infarct within the right caudate nucleus. There are subtle areas of hypodensity within the cerebral white matter, likely due to chronic small vessel disease. There is mild cerebral and cerebellar volume loss. There is evidence of suspected left lens surgery. The paranasal sinuses mastoid air cells are unremarkable. No calvarial lesion is seen. IMPRESSION: 1. No acute intracranial finding. 2. Stable increased extra-axial space along the cerebral convexities likely due to chronic subdural hematomas or hygromas. There is no evidence of acute or subacute extra-axial hemorrhage. 3. Subtle decreased attenuation within the cerebral white matter, likely due to chronic small vessel disease. 4. Chronic lacunar infarct within the right caudate nucleus. Electronically signed by: Rosa Ho MD (06/05/2018 4:50 PM) [facility]
[2018-06-05 17:19] LABS: BACTERIA,URINE 0 /HPF (0-FEW); BILIRUBIN,URINE NEG (NEG); CLARITY,URINE CLEAR; COLOR,URINE YELLOW; GLUCOSE,URINE NEG (NEG); NITRITE,URINE NEG (NEG); RBC,URINE OCC /HPF (0-2); UROBILINOGEN,URINE 0.2 mg/dL (0.2 mg/dL); WBC,URINE 0 /HPF (0-4)
--- NOTE | 2018-06-05 17:24 | PHYS DOC ---
Past History Past Medical History: High Cholesterol, Hypertension, Other (ALFONSO BRAGG MD) Past Surgical History: No Surgical History (ALFONSO BRAGG MD) Smoking: Non-smoker Alcohol Use: None Drug Use: None (ALFONSO BRAGG MD) Adult General Chief Complaint Chief Complaint: Balance problem HPI HPI Patient is 63 year old male who presents with complaining of problem with his balance since his fall 10 days ago. Patient states she had accidental fall from a standing position 10 days ago and injured his face and his lip with lips contusion that gradually improved. Patient's states he had problem with his balance and leaning to his right side during walking and had decrease of activity and sleeping more than his usual. Patient denies new focal neuro deficit, nausea and vomiting, fever and chills, chest pain and shortness of breath. Patient complaining of headache. (ALFONSO BRAGG MD) Review of Systems Review of Systems Constitutional: Denies fever or chills [] Eyes: Denies change in visual acuity, redness, or eye pain [] HENT: Denies nasal congestion or sore throat [] Respiratory: Denies cough or shortness of breath [] Cardiovascular: No additional information not addressed in HPI [] GI: Denies abdominal pain, nausea, vomiting, bloody stools or diarrhea [] : Denies dysuria or hematuria [] Musculoskeletal: Denies back pain or joint pain [] Integument: Denies rash or skin lesions [] Neurologic: Reports balance problem and headache, denies focal weakness or sensory changes [] Endocrine: Denies polyuria or polydipsia [] All other systems were reviewed and found to be within normal limits, except as documented in this note. (ALFONSO BRAGG MD) Allergies Allergies Allergies Coded Allergies Type Severity Reaction Last Updated Verified No Known Drug Allergies 03/08/14 No (ALFONSO BRAGG MD) Physical Exam Physical Exam Constitutional: Well developed, well nourished, mild distress, non-toxic appearance. [] HENT: Normocephalic, atraumatic, bilateral external ears normal, oropharynx moist, no oral exudates, nose normal. [] Eyes: PERRLA, EOMI, conjunctiva normal, no discharge. [] Neck: Normal range of motion, no tenderness, supple, no stridor. [] Cardiovascular:Heart rate regular rhythm, no murmur [] Lungs & Thorax: Bilateral breath sounds clear to auscultation [] Abdomen: Bowel sounds normal, soft, no tenderness, no masses, no pulsatile masses. [] Skin: Warm, dry, no erythema, no rash. [] Back: No tenderness, no CVA tenderness. [] Extremities: No tenderness, no cyanosis, no clubbing, ROM intact, no edema. [] Neurologic: Alert and oriented X 3, normal motor function, normal sensory function, no focal deficits noted. [] Psychologic: Affect normal, judgement normal, mood normal. [] (ALFONSO BRAGG MD) Current Patient Data Vital Signs Vital Signs Date Time Temp Pulse Resp B/P (MAP) Pulse Ox O2 Delivery O2 Flow Rate FiO2 06/05/18 16:05 97.9 78 22 99 Room Air Lab Results Laboratory Tests Test 06/05/18 16:15 White Blood Count 6.2 x10^3/uL (4.0-11.0) Red Blood Count 4.88 x10^6/uL (4.30-5.70) Hemoglobin 13.9 g/dL (13.0-17.5) Hematocrit 42.5 % (39.0-53.0) Mean Corpuscular Volume 87 fL (79-100) Mean Corpuscular Hemoglobin 29 pg (25-35) Mean Corpuscular Hemoglobin Concent 33 g/dL (31-37) Red Cell Distribution Width 13.8 % (11.5-14.5) Platelet Count 303 x10^3/uL (140-400) Neutrophils (%) (Auto) 58 % (31-73) Lymphocytes (%) (Auto) 29 % (24-48) Monocytes (%) (Auto) 10 % (0-9) H Eosinophils (%) (Auto) 2 % (0-3) Basophils (%) (Auto) 1 % (0-3) Neutrophils # (Auto) 3.6 x10^3uL (1.8-7.7) Lymphocytes # (Auto) 1.8 x10^3/uL (1.0-4.8) Monocytes # (Auto) 0.6 x10^3/uL (0.0-1.1) Eosinophils # (Auto) 0.1 x10^3/uL (0.0-0.7) Basophils # (Auto) 0.0 x10^3/uL (0.0-0.2) (ALFONSO BRAGG MD) EKG EKG EKG interpreted by me. EKG at 1642 showed sinus bradycardia at rate of 57, poor R-wave progress in anteroseptal leads, no acute ST and T-wave abnormalities. (ALFONSO BRAGG MD) Radiology/Procedures Radiology/Procedures [address] [address] IMAGING REPORT Signed PATIENT: DAHLIA JOHNSON ACCOUNT: [id number] : 1955 LOCATION: ER AGE: 63 SEX: M EXAM STATUS: REG ER ORD. PHYSICIAN: ALFONSO BRAGG MD REASON: dizziness PROCEDURE: CHEST PA & LATERAL Two-view chest dated 06/05/2018. No comparison available. Clinical data indication: Dizziness. FINDINGS: 2 views chest show normal heart and mediastinal contours. Lungs are somewhat hyperinflated but otherwise clear. No consolidation or pleural effusion. No pneumothorax. IMPRESSION: No acute radiographic abnormality. Electronically signed by: Marvin Cochran MD (06/05/2018 4:49 PM) [id number] DICTATED AND SIGNED BY: MARVIN COCRHAN MD DATE: 06/05/18 0559 CC: ALFONSO BRAGG MD; DREW CALDWELL PA ~ [address] [address] IMAGING REPORT Signed PATIENT: DAHLIA JOHNSON ACCOUNT: [id number] : 1955 LOCATION: ER AGE: 63 SEX: M EXAM STATUS: REG ER ORD. PHYSICIAN: ALFONSO BRAGG MD REASON: dizziness PROCEDURE: CT HEAD WO CONTRAST EXAM: Head CT without contrast. HISTORY: Confusion. Left-sided weakness. TECHNIQUE: Computed tomographic images of the head were obtained without contrast.. *One or more of the following individualized dose reduction techniques were utilized for this examination: 1. Automated exposure control. 2. Adjustment of the mA and/or kV according to patient size. 3. Use of iterative reconstruction technique. COMPARISON: Brain MRI dated 10/26/2016. FINDINGS: There is fairly symmetric increased bifrontal extra-axial space due to suspected chronic subdural hematomas or hygromas. There are cortical vessels coursing through the subdural space. No acute or subacute extra-axial hemorrhage is seen. There is a cavum septum pellucidum. There is a chronic lacunar infarct within the right caudate nucleus. There are subtle areas of hypodensity within the cerebral white matter, likely due to chronic small vessel disease. There is mild cerebral and cerebellar volume loss. There is evidence of suspected left lens surgery. The paranasal sinuses mastoid air cells are unremarkable. No calvarial lesion is seen. IMPRESSION: 1. No acute intracranial finding. 2. Stable increased extra-axial space along the cerebral convexities likely due to chronic subdural hematomas or hygromas. There is no evidence of acute or subacute extra-axial hemorrhage. 3. Subtle decreased attenuation within the cerebral white matter, likely due to chronic small vessel disease. 4. Chronic lacunar infarct within the right caudate nucleus. Electronically signed by: Rosa Howard MD (06/05/2018 4:50 PM) [facility] DICTATED AND SIGNED BY: ROSA HOWARD MD DATE: 06/05/18 165 CC: ALFONSO BRAGG MD; DREW CALDWELL ~ (ALFONSO BRAGG MD) Radiology/Procedures My interpretation of CXR - shows no acute cardiopulmonary findings. Some basilar atelectasis. No infiltrate ON no pneumothorax. See formal report when available (OCTAVIO PATEL MD) Course & Med Decision Making Course & Med Decision Making Pertinent Labs and Imaging studies reviewed. (See chart for details) Evaluation of patient in ER showed 63-year-old male patient with balance problem after a fall [address] showed old hemorrhage and lateral infarct without subacute hemorrhage. CMP is pending. Patient's care transferred to Dr. Patel at 1800. (ALFONSO BRAGG MD) Course & Med Decision Making Discussed presentation, testing and tx. plan with [facility] Dr. Saavedra and Dr. Santiago- Plan transfer to [facility] for eventual MRI and admission to ICU. Impression: 1. Hx Fall Ten Days ago with Head Trauma 2. Since fall and pt notice increased gait problems- (because of fall or post fall?) 3. CT- Suspect Subdural Hematoma -does not appear acute-(suspect sub-acute - chronic) Pt. vitals, labs stable at transfer to [facility]- No increase in complaints- other than pt gait issues ( Parkinson like shuffle- difficulty in stopping once he starts walking. Difficultly getting out of a chair.) (OCTAVIO PATEL MD) Dragon Disclaimer Dragon Disclaimer This electronic medical record was generated, in whole or in part, using a voice recognition dictation system. (ALFONSO BRAGG MD) Departure Departure: Impression: Primary Impression: Balance problem Referrals: DREW CALDWELL (PCP) NIHSS - ED NIH Stroke Scale: NIH Stroke Scale Response (Comments) Value Level of Consciousness: 0 Alert/Responsive 0 LOC Questions: 0 Answers both correctly 0 LOC Commands: 0 Performs both tasks 0 Best Gaze: 0 Normal 0 Visual: 0 No visual loss 0 Facial Palsy: 0 Normal, symmetrical 0 Motor - Left Arm 0 No drift 0 Motor - Right Arm 0 No drift 0 Motor - Left Leg 0 No drift 0 Motor: Right Leg 0 No drift 0 Limb Ataxia: 0 Absent 0 Sensory: 0 No loss 0 Best Language: 0 Normal 0 Dysathria: 0 Normal 0 Extinction and Inattention: 0 Normal 0 Total 0 Dragon Disclaimer This chart was dictated in whole or in part using Voice Recognition software in a busy, high-work load, and often noisy Emergency Department environment. It may contain unintended and wholly unrecognized errors or omissions. (OCTAVIO PATEL MD) Discharge Summary Visit Information Final Diagnosis Problems Medical Problems: (1) Balance problem Status: Acute (OCTAVIO PATEL MD) Brief Hospital Course Allergies Allergies Coded Allergies Type Severity Reaction Last Updated Verified No Known Drug Allergies 03/08/14 No Vital Signs Vital Signs Date Time Temp Pulse Resp B/P (MAP) Pulse Ox O2 Delivery O2 Flow Rate FiO2 06/05/18 21:03 56 16 159/92 (114) 99 Room Air 06/05/18 16:05 97.9 Lab Results Laboratory Tests Test 06/05/18 16:15 06/05/18 17:00 White Blood Count 6.2 x10^3/uL (4.0-11.0) Red Blood Count 4.88 x10^6/uL (4.30-5.70) Hemoglobin 13.9 g/dL (13.0-17.5) Hematocrit 42.5 % (39.0-53.0) Mean Corpuscular Volume 87 fL (79-100) Mean Corpuscular Hemoglobin 29 pg (25-35) Mean Corpuscular Hemoglobin Concent 33 g/dL (31-37) Red Cell Distribution Width 13.8 % (11.5-14.5) Platelet Count 303 x10^3/uL (140-400) Neutrophils (%) (Auto) 58 % (31-73) Lymphocytes (%) (Auto) 29 % (24-48) Monocytes (%) (Auto) 10 % (0-9) Eosinophils (%) (Auto) 2 % (0-3) Basophils (%) (Auto) 1 % (0-3) Neutrophils # (Auto) 3.6 x10^3uL (1.8-7.7) Lymphocytes # (Auto) 1.8 x10^3/uL (1.0-4.8) Monocytes # (Auto) 0.6 x10^3/uL (0.0-1.1) Eosinophils # (Auto) 0.1 x10^3/uL (0.0-0.7) Basophils # (Auto) 0.0 x10^3/uL (0.0-0.2) Prothrombin Time 9.7 SEC (9.4-11.4) Prothromb Time International Ratio 1.0 (0.9-1.1) Sodium Level 142 mmol/L (136-145) Potassium Level 4.2 mmol/L (3.5-5.1) Chloride Level 104 mmol/L (98-107) Carbon Dioxide Level 29 mmol/L (21-32) Anion Gap 9 (6-14) Blood Urea Nitrogen 21 mg/dL (8-26) Creatinine 1.3 mg/dL (0.7-1.3) Estimated GFR (Cockcroft-Gault) 55.9 BUN/Creatinine Ratio 16 (6-20) Glucose Level 92 mg/dL (70-99) Calcium Level 9.2 mg/dL (8.5-10.1) Magnesium Level 2.1 mg/dL (1.8-2.4) Total Bilirubin 1.4 mg/dL (0.2-1.0) Aspartate Amino Transf (AST/SGOT) 19 U/L (15-37) Alanine Aminotransferase (ALT/SGPT) 32 U/L (16-63) Alkaline Phosphatase 54 U/L (46-116) Creatine Kinase 138 U/L (39-308) Troponin I Quantitative < 0.017 ng/mL (0-0.055) NF-Cwp-R-Type Natriuretic Peptide 48 pg/mL (0-124) Total Protein 8.0 g/dL (6.4-8.2) Albumin 4.2 g/dL (3.4-5.0) Albumin/Globulin Ratio 1.1 (1.0-1.7) Urine Collection Type Unknown Urine Color Yellow Urine Clarity Clear Urine pH 6.0 Urine Specific Steedman 1.020 Urine Protein Neg (NEG-TRACE) Urine Glucose (UA) Neg mg/dL (NEG) Urine Ketones (Stick) Neg mg/dL (NEG) Urine Blood Small (NEG) Urine Nitrite Neg (NEG) Urine Bilirubin Neg (NEG) Urine Urobilinogen Dipstick 0.2 mg/dL (0.2 mg/dL) Urine Leukocyte Esterase Neg (NEG) Urine RBC Occ /HPF (0-2) Urine WBC 0 /HPF (0-4) Urine Squamous Epithelial Cells None /LPF Urine Bacteria 0 /HPF (0-FEW) Brief Hospital Course Mr. Johnson is a 63 old [place] male who presented with history of fall 10 days ago and head injury. History of increased gait problems. Found to have subdural- transferred to [facility]-neurosurgery consults, Dr. Santiago accepting. (OCTAVIO PATEL MD) Discharge Information Condition at Discharge: Stable Disposition/Orders: D/C to Another Facility Dischare Medications Active Scripts Active Flomax (Tamsulosin Hcl) 0.4 Mg Cap.er.24h 1 Cap PO DAILY Keflex (Cephalexin) 500 Mg Capsule 2 Cap PO Q12HR Macrobid 100 Mg Capsule (Nitrofurantoin Monohyd/M-Cryst) 100 Mg Capsule 1 Cap PO BID Cephalexin 500 Mg Capsule 1 Cap PO QID Cipro (Ciprofloxacin Hcl) 250 Mg Tablet 1 Tab PO BID Pyridium (Phenazopyridine Hcl) 200 Mg Tablet 200 Mg PO BID Tylenol With Codeine #3 Tablet (Acetaminophen With Codeine) 1 Each Tablet 1 Tab PO Q4-6HRS PRN Naprosyn (Naproxen) 500 Mg Tablet 1 Tab PO BID George 5-325 Tablet (Hydrocodone Bit/Acetaminophen) 1 Each Tablet 1-2 Tab PO Q4- 6HRS Reported No Known Medications Prior To Admisstion (Info) Each 1 Each MC (OCTAVIO PATEL MD) ALFONSO BRAGG MD Jun 05, 2018 17:24 OCTAVIO PATEL MD Jun 06, 2018 22:14
[2018-06-05 18:02] LABS: ALBUMIN 4.2 g/dL (3.4-5.0); ALBUMIN/GLOBULIN RATIO 1.1 (1.0-1.7); CALCIUM 9.2 mg/dL (8.5-10.1); CREATININE 1.3 mg/dL (0.7-1.3); GFR 55.9; MAGNESIUM 2.1 mg/dL (1.8-2.4); POTASSIUM 4.2 mmol/L (3.5-5.1); TOTAL BILIRUBIN 1.4 mg/dL (0.2-1.0)
[2018-06-05 21:03] VITALS: BP 159/92
== END 2018-06-05 21:45 | disposition home or self-care (01) ==
LOC: ER 15:53
DX: R26.89 Other abnormalities of gait and mobility (principal); R41.0 Disorientation, unspecified; R53.1 Weakness; S00.531D Contusion of lip, subsequent encounter; S09.8XXD Other specified injuries of head, subsequent encounter; R42 Dizziness and giddiness; E78.00 Pure hypercholesterolemia, unspecified; I10 Essential (primary) hypertension; W18.39XD Other fall on same level, subsequent encounter
CPT/HCPCS: 36415; 70450; 71046; 80053; 81001; 82550; 83735; 83880; 84484; 85025; 85610; 93005; 99285-25

== ENCOUNTER → 2018-06-19 | Outpatient (CLI) | payer OTHER ==
[2018-06-05 21:03] VITALS: BP 159/92
--- NOTE | 2018-06-19 09:23 | RAD ---
[facility] Compliance Statement: One or more of the following individualized dose reduction techniques were utilized for this examination: 1. Automated exposure control 2. Adjustment of the mA and/or kV according to patient size 3. Use of iterative reconstruction technique CT head without contrast 06/19/2018 8:56 AM INDICATION: Lacunar infarct COMPARISON: CT head June 05, 2018 TECHNIQUE: Multiple axial CT images of the head were obtained from skull base through the vertex without intravenous contrast. FINDINGS: Head: Ventricles, sulci and basal cisterns are prominent compatible with generalized cerebral volume loss. Low-attenuation in the periventricular white matter is suggestive of chronic small vessel ischemic changes. There is a remote lacunar infarct in the right jhaveri radiata. There is a remote lacunar infarct in the left caudate head. Additional remote lacunar infarct is noted in the left putamen. There is a cavum septum pellucidum. There is prominence of the bifrontal extra-axial spaces, not significantly changed since prior examination. Bridging veins are identified in the right cerebral convexity. No high attenuation is identified to suggest acute on chronic hemorrhage. There is no hydrocephalus. Kim-white matter differentiation is normal. There is no acute intracranial hemorrhage. There is no mass, mass effect or midline shift. Posterior fossa is normal in appearance. Visualized portions of the orbits are normal with exception of left lens replacement. Paranasal sinuses are well aerated. Mastoid air cells are well aerated. Scalp and calvaria are normal. IMPRESSION: No acute intracranial hemorrhage. 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 Remote lacunar infarcts are identified in the right jhaveri radiata, left caudate head and left basal ganglia. Findings are stable. Electronically signed by: Deedee Maxwell MD (06/19/2018 9:19 AM) [id number]
== END | disposition home or self-care (01) ==
LOC: CT 08:45
PROVIDERS: ATTEND Physician Assistant Medical
DX: S06.5X0A Traumatic subdural hemorrhage without loss of consciousness, initial encounter (principal); X58.XXXA Exposure to other specified factors, initial encounter; Y93.89 Activity, other specified; Y92.89 Other specified places as the place of occurrence of the external cause; Y99.8 Other external cause status
CPT/HCPCS: 70450

== ENCOUNTER 2018-12-16 08:04 | Emergency (ER) | payer OTHER ==
[2018-12-16 08:23] VITALS: BP 136/81
[2018-12-16] MEDS ORDERED: IBUPROFEN 600 MG TABLET. PO ONE ×2 (08:44→08:45)
--- NOTE | 2018-12-16 08:51 | RAD ---
Indication:Pain in the lateral aspect of her rolling. TECHNIQUE: 3 views of the left ankle COMPARISON:None FINDINGS/ impression: No acute fracture or dislocation. Mild swelling overlying lateral malleolus. Ankle mortise is intact. No arthritic changes. Electronically signed by: Michael Yee DO (12/16/2018 8:48 AM) [facility]
[2018-12-16] MEDS ORDERED: MELO7.5T29 PO (09:00)
--- NOTE | 2018-12-16 09:00 | PHYS DOC ---
Past History Past Medical History: No Pertinent History Past Surgical History: No Surgical History Smoking: Non-smoker Alcohol Use: None Drug Use: None Adult General Chief Complaint Chief Complaint: ANKLE PROBLEM HPI HPI Patient is a 63-year-old male presents with left ankle pain. Patient injured his ankle 2 days ago while trying to evade yellow jackets that stung him. Increased pain with movement. Pain is moderate in intensity. He is able to ambulate. No numbness or tingling. No radiation of the discomfort.[] Review of Systems Review of Systems Constitutional: Denies fever or chills [] Eyes: Denies change in visual acuity, redness, or eye pain [] HENT: Denies nasal congestion or sore throat [] Respiratory: Denies cough or shortness of breath [] Cardiovascular: No additional information not addressed in HPI [] GI: Denies abdominal pain, nausea, vomiting, bloody stools or diarrhea [] : Denies dysuria or hematuria [] Musculoskeletal: Denies back pain, see history of present illness[] Integument: Denies rash or skin lesions [] Neurologic: Denies headache, focal weakness or sensory changes [] Endocrine: Denies polyuria or polydipsia [] All other systems were reviewed and found to be within normal limits, except as documented in this note. Current Medications Current Medications Current Medications Medications (Trade) Dose Ordered Sig/Jose Start Time Stop Time Status Last Admin Dose Admin Ibuprofen (Motrin) 600 mg 1X ONCE 12/16/18 08:45 12/16/18 08:46 UNV Allergies Allergies Allergies Coded Allergies Type Severity Reaction Last Updated Verified No Known Drug Allergies 03/08/14 No Physical Exam Physical Exam Constitutional: Well developed, well nourished, no acute distress, non-toxic appearance. [] HENT: Normocephalic, atraumatic, bilateral external ears normal, oropharynx moist, no oral exudates, nose normal. [] Eyes: PERRLA, EOMI, conjunctiva normal, no discharge. [] Neck: Normal range of motion, no tenderness, supple, no stridor. [] Cardiovascular:Heart rate regular rhythm, no murmur [] Lungs & Thorax: Bilateral breath sounds clear to auscultation [] Abdomen: Not examined. [] Skin: Warm, dry, no erythema, no rash. [] Back: No tenderness, no CVA tenderness. [] Extremities: Left ankle has mild swelling, tenderness to palpation along the lateral aspect. No base of the fifth metatarsal tenderness. No medial malleolus tenderness. Patient is distally neurovascularly intact. No ligamentous laxity. Decreased active range of motion secondary to pain in dorsi and plantar flexion. A joint above and a joined below were evaluated and were normal. The other 3 extremities show: No tenderness, no cyanosis, no clubbing, ROM intact, no edema. [] Neurologic: Alert and oriented X 3, normal motor function, normal sensory function, no focal deficits noted. [] Psychologic: Affect normal, judgement normal, mood normal. [] Current Patient Data Vital Signs Vital Signs Date Time Temp Pulse Resp B/P (MAP) Pulse Ox O2 Delivery O2 Flow Rate FiO2 12/16/18 08:23 97.9 85 18 96 Room Air EKG EKG [] Radiology/Procedures Radiology/Procedures PROCEDURE: ANKLE LEFT 3V Indication:Pain in the lateral aspect of her rolling. TECHNIQUE: 3 views of the left ankle COMPARISON:None FINDINGS/ impression: No acute fracture or dislocation. Mild swelling overlying lateral malleolus. Ankle mortise is intact. No arthritic changes.[] Course & Med Decision Making Course & Med Decision Making Pertinent Labs and Imaging studies reviewed. (See chart for details) ED course: Patient arrived, was placed in bed, and tolerated exam well. He was transported to and from radiology with any complications. After the return of the imaging findings, these were discussed with the patient who voiced understanding. A premade stirrup splint was applied. He was distally neurovascularly intact after splint application. He was discharged in improved condition with all questions answered. Medical decision making: There is no evidence of a fracture, dislocation, nor high-grade ankle sprain. No evidence of neurologic or vascular compromise.[] Dragon Disclaimer Dragon Disclaimer This electronic medical record was generated, in whole or in part, using a voice recognition dictation system. Departure Departure: Impression: Primary Impression: Left ankle sprain Disposition: 01 HOME, SELF-CARE Condition: IMPROVED Referrals: DREW CALDWELL (PCP) Follow-up in 2 days Patient Instructions: Ankle Sprain Additional Instructions: Follow-up with your regular doctor in 2 days. Apply warm compresses for 15 minutes at a time, at least 4 times a day. Return to the ER if worsening pain, weakness, or any other concerns. Scripts Meloxicam (MELOXICAM) 7.5 Mg Tablet 7.5 MG PO DAILY for PAIN, #20 TAB Prov: TG TIMMONS DO 12/16/18 Problem Qualifiers Primary Impression: Left ankle sprain Encounter type: initial encounter Involved ligament of ankle: anterior talofibular ligament Qualified Codes: S93.492A - Sprain of other ligament of left ankle, initial encounter TG TIMMONS DO Dec 16, 2018 09:00
== END 2018-12-16 09:02 | disposition home or self-care (01) ==
LOC: ER 08:04
DX: S93.492A Sprain of other ligament of left ankle, initial encounter (principal); X50.9XXA Other and unspecified overexertion or strenuous movements or postures, initial encounter; Y93.89 Activity, other specified; Y92.89 Other specified places as the place of occurrence of the external cause; Y99.8 Other external cause status
CPT/HCPCS: 29515; 73610; 99284

== ENCOUNTER → 2019-03-26 | Outpatient (CLI) | payer OTHER ==
[~2019-03-26] MED LIST changes: +MELO7.5T29 PO
[2019-03-26 10:15] LABS: BASO # 0.1 x10^3/uL (0.0-0.2); BASO % 1 % (0-3); EOS # 0.2 x10^3/uL (0.0-0.7); EOS % 2 % (0-3); HEMATOCRIT 42.4 % (39.0-53.0); HEMOGLOBIN 14.4 g/dL (13.0-17.5); LYMPH # 2.1 x10^3/uL (1.0-4.8); LYMPH % 27 % (24-48); MEAN CORPUSCULAR HEMOGLOBIN 29 pg (25-35); MEAN CORPUSCULAR HGB CONC 34 g/dL (31-37); MEAN CORPUSCULAR VOLUME 86 fL (79-100); MONO # 0.6 x10^3/uL (0.0-1.1); MONO % 8 % (0-9); NEUT # 4.8 x10^3uL (1.8-7.7); NEUT % 62 % (31-73); PLATELET COUNT 316 x10^3/uL (140-400); RED BLOOD COUNT 4.96 x10^6/uL (4.30-5.70); RED CELL DISTRIBUTION WIDTH 13.6 % (11.5-14.5); WHITE BLOOD COUNT 7.8 x10^3/uL (4.0-11.0)
[2019-03-26 10:25] LABS: ALBUMIN 4.2 g/dL (3.4-5.0); CALCIUM 9.2 mg/dL (8.5-10.1); CREATININE 1.4 mg/dL (0.7-1.3); GFR 51.2; POTASSIUM 3.5 mmol/L (3.5-5.1); TOTAL BILIRUBIN 1.1 mg/dL (0.2-1.0); TOTAL PROTEIN 8.4 g/dL (6.4-8.2)
[2019-03-26 15:13] LABS: FREE T4 1.01 ng/dL (0.76-1.46); THYROID STIM HORMONE (TSH) 1.545 uIU/mL (0.358-3.740)
== END | disposition home or self-care (01) ==
LOC: PMG 09:04
PROVIDERS: ATTEND Physician Assistant Medical
DX: I10 Essential (primary) hypertension (principal); R26.89 Other abnormalities of gait and mobility; E78.5 Hyperlipidemia, unspecified; R60.9 Edema, unspecified
CPT/HCPCS: 36415; 80053; 80061; 84153; 84439; 84443; 84481; 85025; G0103

== ENCOUNTER 2019-04-24 06:56 | Emergency (ER) | payer OTHER ==
[~2019-04-24] VITALS: Ht 167.6 cm; Wt 81.8 kg
[2019-04-24 07:09] VITALS: BP 152/81
--- NOTE | 2019-04-24 07:39 | PHYS DOC ---
Past History Past Medical History: No Pertinent History Past Surgical History: No Surgical History Smoking: Non-smoker Alcohol Use: None Drug Use: None Adult General Chief Complaint Chief Complaint: KNEE INJURY HPI HPI 64-year-old male presents with swollen left knee. He slipped and fell 2 days ago directly landing on the left patella. He was able to walk immediately afterwards. He has continued to be able to walk. It is still swollen just under the patella so he wanted to make sure there was nothing serious to worry about. He is tolerating the pain well with [id number] medications. She denies any other injuries or complaints. Review of Systems Review of Systems Constitutional: Denies fever or chills [] Eyes: Denies change in visual acuity, redness, or eye pain [] HENT: Denies nasal congestion or sore throat [] Respiratory: Denies cough or shortness of breath [] Cardiovascular: No additional information not addressed in HPI [] GI: Denies abdominal pain, nausea, vomiting, bloody stools or diarrhea [] : Denies dysuria or hematuria [] Musculoskeletal: Left knee pain[] Integument: Denies rash or skin lesions [] Neurologic: Denies headache, focal weakness or sensory changes [] Endocrine: Denies polyuria or polydipsia [] All other systems were reviewed and found to be within normal limits, except as documented in this note. Allergies Allergies Allergies Coded Allergies Type Severity Reaction Last Updated Verified No Known Drug Allergies 03/08/14 No Physical Exam Physical Exam Constitutional: Well developed, well nourished, no acute distress, non-toxic appearance. [] HENT: Normocephalic, atraumatic, bilateral external ears normal, oropharynx moist, no oral exudates, nose normal. [] Eyes: PERRLA, EOMI, conjunctiva normal, no discharge. [] Neck: Normal range of motion, no tenderness, supple, no stridor. [] Cardiovascular:Heart rate regular rhythm, no murmur [] Lungs & Thorax: Bilateral breath sounds clear to auscultation [] Abdomen: Bowel sounds normal, soft, no tenderness, no masses, no pulsatile masses. [] Skin: Warm, dry, no erythema, no rash. [] Back: No tenderness, no CVA tenderness. [] Extremities: Mild swelling of the infrapatellar area left knee, no ecchymosis, no obvious deformity, mild tenderness to palpation[] Neurologic: Alert and oriented X 3, normal motor function, normal sensory function, no focal deficits noted. [] Psychologic: Affect normal, judgement normal, mood normal. [] Current Patient Data Vital Signs Vital Signs Date Time Temp Pulse Resp B/P (MAP) Pulse Ox O2 Delivery O2 Flow Rate FiO2 04/24/19 07:09 98.0 82 18 152/81 (104) 99 Room Air EKG EKG [] Radiology/Procedures Radiology/Procedures [] Course & Med Decision Making Course & Med Decision Making Pertinent Labs and Imaging studies reviewed. (See chart for details) The patient's physical exam is reassuring. I believe he just has a contusion of the left patella. NSAID therapy and pacing. He will consider compression if it helps it feel better. He is stable for discharge at this time. [] Dragon Disclaimer Dragon Disclaimer This electronic medical record was generated, in whole or in part, using a voice recognition dictation system. Departure Departure: Impression: Primary Impression: Contusion of left patella Disposition: HOME, SELF-CARE Condition: STABLE Referrals: DREW CALDWELL (PCP) Patient Instructions: Knee Effusion, [id number], Knee Pain, [id number] Problem Qualifiers Primary Impression: Contusion of left patella Encounter type: initial encounter Qualified Codes: S80.02XA - Contusion of left knee, initial encounter LAVELL SANTILLAN DO Apr 24, 2019 07:38
== END 2019-04-24 07:42 | disposition home or self-care (01) ==
LOC: ER 06:56
DX: S80.02XA Contusion of left knee, initial encounter (principal); W01.0XXA Fall on same level from slipping, tripping and stumbling without subsequent striking against object, initial encounter; Y93.89 Activity, other specified; Y92.89 Other specified places as the place of occurrence of the external cause; Y99.8 Other external cause status
CPT/HCPCS: 99281

== ENCOUNTER 2020-03-10 15:40 | Emergency (ER) | payer OTHER ==
[~2020-03-10] VITALS: Ht 167.6 cm; Wt 84.3 kg
[2020-03-10 15:50] VITALS: BP 136/99
--- NOTE | 2020-03-10 16:59 | PHYS DOC ---
Past History Past Medical History: High Cholesterol, Hypertension (JOCY RUSSELL APRN) Past Surgical History: No Surgical History (JOCY RUSSELL APRN) Smoking: Non-smoker Alcohol Use: None Drug Use: None (JOCY RUSSELL APRN) Adult General Chief Complaint Chief Complaint: HAND PROBLEM HPI HPI Patient is a 65-year-old lady presents with puncture wound to left hand. Patient reports he has been using Florinef, 1 at had function his hand, and caused a laceration with some swelling. Reports it had come through his lower skin approximately 1 inch. States he does not know when his last tetanus shot was, believes it was at least 5 years ago. States he has full range of motion to his finger. Denies any loss of sensation, denies any additional complaints. (JOCY RUSSELL APRN) Review of Systems Review of Systems Constitutional: Denies fever or chills [] Musculoskeletal: Denies back pain or joint pain states he can move his finger like normal. [] Integument: Denies rash or skin lesions does report he has a laceration to his left posterior hand with a puncture distal [] Neurologic: Denies headache, focal weakness or sensory changes [] All other systems were reviewed and found to be within normal limits, except as documented in this note. (JOCY RUSSELL APRN) Allergies Allergies Allergies Coded Allergies Type Severity Reaction Last Updated Verified No Known Drug Allergies 03/08/14 No (JOCY RUSSELL APRN) Physical Exam Physical Exam Constitutional: Well developed, well nourished, no acute distress, non-toxic appearance. [] Skin: Warm, dry, no erythema, no rash. [] 1 cm laceration noted to left interwave of, first digit, well approximated, minimal to no active bleeding. Punctate lesion noted posterior lateral to laceration site, without tenderness, no active bleeding. Back: No tenderness, no CVA tenderness. [] Extremities: No tenderness, no cyanosis, no clubbing, ROM intact, no edema. Tendons intact, full range of motion of all digits, sensation intact in all digits [] Neurologic: Alert and oriented X 3, normal motor function, normal sensory function, no focal deficits noted. [] Psychologic: Affect normal, judgement normal, mood normal. [] (JOCY RUSSELL APRN) Current Patient Data Vital Signs Vital Signs Date Time Temp Pulse Resp B/P (MAP) Pulse Ox O2 Delivery O2 Flow Rate FiO2 03/10/20 15:50 97.7 78 20 136/99 (111) 99 Room Air (JOCY RUSSELL APRN) EKG EKG [] (JOCY RUSSELL APRN) Radiology/Procedures Radiology/Procedures [] (JOCY RUSSELL APRN) Heart Score Risk Factors: Risk Factors: DM, Current or recent (<one month) smoker, HTN, HLP, family history of CAD, obesity. Risk Scores: Risk Factors: DM, Current or recent (<one month) smoker, HTN, HLP, family history of CAD, obesity. (JOCY RUSSELL APRN) Course & Med Decision Making Course & Med Decision Making Pertinent Labs and Imaging studies reviewed. (See chart for details) [] Reviewed elevation with patient, noting small laceration, well approximated. Discussed suture versus Dermabond with patient, believe Dermabond will be appropriate as laceration is nonmobile (JOCY RUSSELL APRN) Course & Med Decision Making I oversaw on the above date of service of this patient and discussed the care with the SOCIAL SECRETARY. I agree with the findings, plan of care, and disposition as documented. Norma Bradley DO Attending ED Physician (NORMA BRADLEY DO) Freddy Disclaimer Dragon Disclaimer This electronic medical record was generated, in whole or in part, using a voice recognition dictation system. (JOCY RUSSELL APRN) Laceration Repair Lac Repair Indication: [laceration] Procedure: The patient was placed in the appropriate position and anesthesia around the [N/A. The area was then cleansed with saline]. The laceration was closed with dermabond.] The wound area was then dressed with no dressing]. Total repaired wound length:1 cm. Other Items: [none The patient tolerated the procedure well]. Complications: None. (JOCY RUSSELL APRN) Departure Departure: Impression: Primary Impression: Laceration of hand Disposition: 01 DC HOME SELF CARE/HOMELESS Condition: GOOD Referrals: DREW CALDWELL (PCP) Patient Instructions: Laceration Care, Adult Problem Qualifiers Primary Impression: Laceration of hand Encounter type: initial encounter Foreign body presence: without foreign body Laterality: left Qualified Codes: S61.412A - Laceration without foreign body of left hand, initial encounter JOCY RUSSELL APRN Mar 10, 2020 16:59 NORMA BRADLEY DO Mar 11, 2020 06:31
[2020-03-10] MEDS ORDERED: DIPH,PERTUSS(ACELL),TET VAC/PF 0.5 ML SYRINGE. VAX IM ONE (17:15)
== END 2020-03-10 17:20 | disposition home or self-care (01) ==
LOC: ER 15:40
DX: S61.412A Laceration without foreign body of left hand, initial encounter (principal); E78.00 Pure hypercholesterolemia, unspecified; I10 Essential (primary) hypertension; W26.0XXA Contact with knife, initial encounter; Y93.89 Activity, other specified; Y92.89 Other specified places as the place of occurrence of the external cause; Y99.8 Other external cause status
CPT/HCPCS: 12001; 90471; 90715; 99283

== ENCOUNTER → 2020-05-14 | Outpatient (CLI) | payer OTHER ==
[2020-05-14 11:50] LABS: BASO # 0.1 x10^3/uL (0.0-0.2); BASO % 1 % (0-3); EOS # 0.2 x10^3/uL (0.0-0.7); EOS % 3 % (0-3); HEMATOCRIT 41.7 % (39.0-53.0); HEMOGLOBIN 13.7 g/dL (13.0-17.5); LYMPH % 26 % (24-48); MEAN CORPUSCULAR HEMOGLOBIN 29 pg (25-35); MEAN CORPUSCULAR HGB CONC 33 g/dL (31-37); MEAN CORPUSCULAR VOLUME 88 fL (79-100); MONO # 0.6 x10^3/uL (0.0-1.1); MONO % 8 % (0-9); NEUT # 4.6 x10^3uL (1.8-7.7); NEUT % 62 % (31-73); PLATELET COUNT 291 x10^3/uL (140-400); RED BLOOD COUNT 4.75 x10^6/uL (4.30-5.70); RED CELL DISTRIBUTION WIDTH 13.5 % (11.5-14.5); WHITE BLOOD COUNT 7.5 x10^3/uL (4.0-11.0)
[2020-05-14 12:19] LABS: ALBUMIN 3.7 g/dL (3.4-5.0); ALBUMIN/GLOBULIN RATIO 0.9 (1.0-1.7); CALCIUM 8.6 mg/dL (8.5-10.1); CREATININE 1.4 mg/dL (0.7-1.3); POTASSIUM 3.5 mmol/L (3.5-5.1); TOTAL BILIRUBIN 1.1 mg/dL (0.2-1.0); TOTAL PROTEIN 7.8 g/dL (6.4-8.2); URIC ACID 8.6 mg/dL (3.5-7.2)
[2020-05-14 15:09] LABS: FREE T4 1.09 ng/dL (0.76-1.46); THYROID STIM HORMONE (TSH) 1.818 uIU/mL (0.358-3.740)
== END ==
LOC: LAB 10:20
PROVIDERS: ATTEND Physician Assistant
DX: Z00.00 Encounter for general adult medical examination without abnormal findings (principal); E78.5 Hyperlipidemia, unspecified; I10 Essential (primary) hypertension; Z85.46 Personal history of malignant neoplasm of prostate; Z87.39 Personal history of other diseases of the musculoskeletal system and connective tissue
CPT/HCPCS: 36415; 80053; 80061; 84153; 84439; 84443; 84550; 85025; G0103

== ENCOUNTER → 2021-06-16 | Outpatient (CLI) | payer OTHER ==
[2021-06-16 10:41] LABS: BASO # 0.1 x10^3/uL (0.0-0.2); BASO % 1 % (0-3); EOS # 0.4 x10^3/uL (0.0-0.7); EOS % 5 % (0-3); HEMATOCRIT 45.6 % (39.0-53.0); HEMOGLOBIN 14.8 g/dL (13.0-17.5); LYMPH # 2.4 x10^3/uL (1.0-4.8); LYMPH % 29 % (24-48); MEAN CORPUSCULAR HEMOGLOBIN 29 pg (25-35); MEAN CORPUSCULAR HGB CONC 33 g/dL (31-37); MEAN CORPUSCULAR VOLUME 89 fL (79-100); MONO # 0.6 x10^3/uL (0.0-1.1); MONO % 8 % (0-9); NEUT # 4.7 x10^3uL (1.8-7.7); NEUT % 57 % (31-73); PLATELET COUNT 285 x10^3/uL (140-400); RED BLOOD COUNT 5.14 x10^6/uL (4.30-5.70); RED CELL DISTRIBUTION WIDTH 13.9 % (11.5-14.5); WHITE BLOOD COUNT 8.3 x10^3/uL (4.0-11.0)
[2021-06-16 11:00] LABS: ALBUMIN 4.3 g/dL (3.4-5.0); ALBUMIN/GLOBULIN RATIO 1.3 (1.0-1.7); CALCIUM 9.1 mg/dL (8.5-10.1); CREATININE 1.3 mg/dL (0.7-1.3); GFR 55.4; POTASSIUM 4.5 mmol/L (3.5-5.1); TOTAL BILIRUBIN 1.2 mg/dL (0.2-1.0); TOTAL PROTEIN 7.7 g/dL (6.4-8.2)
[2021-06-16 11:22] LABS: URIC ACID 7.1 mg/dL (3.5-7.2)
[2021-06-16 18:23] LABS: CHOLESTEROL/HDL RATIO 3.7; FREE T4 1.16 ng/dL (0.76-1.46); THYROID STIM HORMONE (TSH) 1.391 uIU/mL (0.358-3.740)
== END ==
LOC: LAB 09:34
PROVIDERS: ATTEND Physician Assistant
DX: Z00.00 Encounter for general adult medical examination without abnormal findings (principal); I10 Essential (primary) hypertension; E78.5 Hyperlipidemia, unspecified; Z85.46 Personal history of malignant neoplasm of prostate; Z87.39 Personal history of other diseases of the musculoskeletal system and connective tissue
CPT/HCPCS: 36415; 80053; 80061; 84153; 84439; 84443; 84550; 85025; G0103

== ENCOUNTER 2021-07-27 09:08 | Emergency (ER) | payer OTHER ==
[~2021-07-27] VITALS: Ht 162.6 cm; Wt 84.1 kg
[2021-07-27 09:18] VITALS: BP 147/81
--- NOTE | 2021-07-27 09:34 | PHYS DOC ---
Past History Past Medical History: High Cholesterol, Hypertension Additional Past Medical Histor: prostate cancer Past Surgical History: Other Additional Past Surgical Histo: prostate cancer Smoking: Non-smoker Alcohol Use: None Drug Use: None General Adult EDM: Chief Complaint: URINARY FREQUENCY HPI: HPI: 66-year-old male presents with 3 days of increased urinary frequency. He has taken indomethacin with today which seemed to have partially helped with his urinary frequency and discomfort, but not completely. He states that he still has some hematuria and frequency so he decided come to the emergency room. He has had a urinary tract infection in the past. Denies fever or chills. Review of Systems: Review of Systems: Constitutional: Denies fever or chills Eyes: Denies change in visual acuity HENT: Denies nasal congestion or sore throat Respiratory: Denies cough or shortness of breath Cardiovascular: Denies chest pain or edema GI: Denies abdominal pain, nausea, vomiting, bloody stools or diarrhea : Hematuria, urinary frequency Musculoskeletal: Denies back pain or joint pain Integument: Denies rash Neurologic: Denies headache, focal weakness or sensory changes Endocrine: Denies polyuria or polydipsia Lymphatic: Denies swollen glands Psychiatric: Denies depression or anxiety Allergies: Allergies: Allergies Coded Allergies Type Severity Reaction Last Updated Verified No Known Drug Allergies 03/08/14 No Physical Exam: PE: Constitutional: Well developed, well nourished, obese, no acute distress, non- toxic appearance. [] HENT: Normocephalic, atraumatic, bilateral external ears normal, oropharynx moist, no oral exudates, nose normal. [] Eyes: PERRLA, EOMI, conjunctiva normal, no discharge. [] Neck: Normal range of motion, no tenderness, supple, no stridor. [] Cardiovascular: Heart rate regular rhythm, no murmur [] Lungs & Thorax: Bilateral breath sounds clear to auscultation [] Abdomen: Bowel sounds normal, soft, no tenderness, no masses, no pulsatile masses. [] Skin: Warm, dry, no erythema, no rash. [] Back: No tenderness, no CVA tenderness. [] Extremities: No tenderness, no cyanosis, no clubbing, ROM intact, no edema. [] Neurologic: Alert and oriented X 3, normal motor function, normal sensory function, no focal deficits noted. [] Psychologic: Affect normal, judgement normal, mood normal. [] Current Patient Data: Vital Signs: Vital Signs Date Time Temp Pulse Resp B/P (MAP) Pulse Ox O2 Delivery O2 Flow Rate FiO2 07/27/21 09:18 97.7 88 20 147/81 (103) 98 Room Air EKG: EKG: [] Radiology/Procedures: Radiology/Procedures: [] Heart Score: C/O Chest Pain: N/A Risk Factors: Risk Factors: DM, Current or recent (<one month) smoker, HTN, HLP, family history of CAD, obesity. Risk Scores: Score 0 - 3: 2.5% MACE over next 6 weeks - Discharge Home Score 4 - 6: 20.3% MACE over next 6 weeks - Admit for Clinical Observation Score 7 - 10: 72.7% MACE over next 6 weeks - Early Invasive Strategies Course & Med Decision Making: Course & Med Decision Making Pertinent Labs and Imaging studies reviewed. (See chart for details) The patient does have a urinary tract infection. I will place him on Keflex for 7 days. He is stable for discharge at this time. [] Dragon Disclaimer: Dragon Disclaimer: This electronic medical record was generated, in whole or in part, using a voice recognition dictation system. Departure Departure: Impression: Primary Impression: Urinary tract infection Disposition: HOME / SELF CARE / HOMELESS Condition: STABLE Referrals: DREW CALDWELL (PCP) Patient Instructions: Urinary Tract Infection, [id number] Scripts Cephalexin (CEPHALEXIN) 500 Mg Tablet 1 TAB PO TID for UTI for 7 Days, #21 TAB Prov: LAVELL SANTILLAN DO 07/27/21 LAVELL SANTILLAN DO July 27, 2021 09:34
[2021-07-27 09:52] LABS: BACTERIA,URINE FEW /HPF (0-FEW); CLARITY,URINE CLOUDY; COLOR,URINE YELLOW; GLUCOSE,URINE NEG (NEG); NITRITE,URINE NEG (NEG); RBC,URINE 20-40 /HPF (0-2); UROBILINOGEN,URINE 0.2 mg/dL (0.2 mg/dL); WBC,URINE 20-40 /HPF (0-4)
[2021-07-27] MEDS ORDERED: CEPH500T PO (10:29)
== END 2021-07-27 10:40 | disposition home or self-care (01) ==
LOC: ER 09:08
DX: N39.0 Urinary tract infection, site not specified (principal); E78.00 Pure hypercholesterolemia, unspecified; I10 Essential (primary) hypertension; Z87.440 Personal history of urinary (tract) infections
CPT/HCPCS: 81001; 87077; 87086; 87186; 99283